=== PATIENT | female | born 1970 | race Two or more races ===

== ENCOUNTER 2016-11-21 13:20 | Emergency (ER) | payer MEDICAID ==
[~2016-11-21] VITALS: Ht 167.6 cm; Wt 113.4 kg
[2016-11-21] MEDS ORDERED: Morphine Sulfate 4mg/ml Inj IVP ONE (13:30)
[2016-11-21] MEDS ORDERED: IBUPROFEN600 MG ORAL (14:22)
[2016-11-21] MEDS ORDERED: NORCO 5-325 TA1 EACH ORAL (14:22)
[2016-11-21 14:53] VITALS: BP 140/90
--- NOTE | 2016-11-21 14:55 | Diagnostic Imaging Report ---
Indication: PAIN Technique: 2 views of the right shoulder Comparison: None Findings: There is a comminuted minimally displaced fracture of the right humeral neck. No dislocation. Impression: Positive for right humeral neck fracture Findings discussed by phone with Dr. De Santiago in the emergency room at time of interpretation
--- NOTE | 2016-11-23 07:57 | Emergency Room Report ---
History of Present Illness General Chief Complaint: Multiple Trauma/Fall Source: Patient Present Illness HPI Patient is a 46-year-old female who presented after having increased right shoulder pain after fall. Patient reported having increased pain at the right shoulder. She reportedly fell onto her shoulder. She denied loss of consciousness. She was having increased pain. Patient had not been vomiting. She prior history of diabetes. The patient was unable to move her right shoulder without pain. Injury occurred just prior to arrival. Allergies: Coded Allergies: No Known Allergies (Unverified , 11/21/16) Patient History Past Medical History: see triage record Now: No Reviewed Nursing Documentation: PMH: Agreed, PSxH: Agreed Nursing Documentation-PMH Past Medical History: No Stated History Hx Cardiac Problems: No Hx Hypertension: Yes Hx Pacemaker: No Hx Asthma: No Hx COPD: No Hx Diabetes: Yes Hx Cerebrovascular Accident: No Hx Seizures: No Review of Systems All Other Systems: negative except mentioned in HPI Physical Exam Vital Signs Date Time Temp Pulse Resp B/P Pulse Ox O2 Delivery O2 Flow Rate FiO2 11/21/16 13:14 98.2 78 16 140/90 98 Room Air General Appearance: well appearing, moderate distress, obese Head: normocephalic, atraumatic ENT: hearing grossly normal, normal voice Neck: full range of motion, supple Respiratory: no respiratory distress, speaking full sentences Musculoskeletal: no calf tenderness, decreased range of mation - right shoulder tenderness near glenohumeral joint Neurologic: normal inspection, alert, oriented x3, responsive, motor strength/ tone normal, normal gait Psychiatric: mood/affect normal Skin: no rash Medical Decision Making Diagnostic Impression: Primary Impression: Fracture, humerus, proximal ER Course Patient presented for her pain to the right shoulder after fall. Differential diagnoses included was not limited to fracture, dislocation, a.c. separation, septic joint. X-ray imaging of the right shoulder 3 views interpreted by me showed a humerus fracture to the proximal humerus. The patient given IM morphine for pain. She is placed in a shoulder mobilizer. Patient was advised followup with orthopedics. Last Vital Signs Date Time Temp Pulse Resp B/P Pulse Ox O2 Delivery O2 Flow Rate FiO2 11/21/16 15:04 98.2 11/21/16 14:53 16 140/90 98 Room Air 11/21/16 14:44 65 Status: improved Disposition: HOME, SELF-CARE Condition: Stable Scripts Ibuprofen* (MOTRIN*) 600 Mg Tablet 600 MG ORAL Q8H Y for For Pain, #30 TAB 0 Refills Prov: Reggie Block 11/21/16 Hydrocodone Bit/Acetaminophen 5-325* (NORCO 5-325*) 1 Each Tablet 1 TAB ORAL Q6H Y for For Pain, #20 TAB 0 Refills Prov: Reggie Block 11/21/16 Patient Instructions: Humerus Fracture Treated With Immobilization Additional Instructions: follow up with primary doctor for orthopedic referral Reggie Block Nov 23, 2016 07:57
== END 2016-11-21 15:04 | disposition home or self-care (01) ==
LOC: EDBD 13:20 → EMR 13:31
DX: S42.291A Other displaced fracture of upper end of right humerus, initial encounter for closed fracture (principal); W19.XXXA Unspecified fall, initial encounter; Y92.89 Other specified places as the place of occurrence of the external cause
CPT/HCPCS: 73020; 96374; 96375; 99284; J2270; J2405